=== PATIENT | female | born 1935 | race African-American/Black ===

== ENCOUNTER 2023-11-29 08:48 | Emergency (ER) | payer BC, MEDICARE ==
[~2023-11-29] VITALS: Ht 172.7 cm; Wt 70.0 kg
[2023-11-29 08:55] VITALS: O2SAT 99
[2023-11-29] MEDS: KETOROLAC 60MG/2ML VIAL IM ONE (09:38)
[2023-11-29 11:41] VITALS: BP 141/78; PULSE 100; RESP 18; TEMP 97.9
== END 2023-11-29 11:44 | disposition home or self-care (01) ==
LOC: ER 09:21
DX: Z76.1 Encounter for health supervision and care of foundling (principal); I10 Essential (primary) hypertension
CPT/HCPCS: 99283; J1885